=== PATIENT | female | born 1970 | race Caucasian/White ===

== ENCOUNTER → 2017-05-09 10:29 | Outpatient (CLI) | payer BC, SELFPAY ==
[2017-05-09 11:48] LABS: Albumin, Serum 3.7 g/dL (3.2-5.0); BUN 11 mg/dL (7-18); BUN/Creat Ratio 14.4 RATIO (10-20); Calcium,Total 8.6 mg/dL (8.5-10.1); Chloride 106 mmol/L (98-107); Creatinine, Serum 0.76 mg/dL (0.55-1.02); EST Glomerular Filtration Rate 87 mL/min (>60); Est Glom Filt Rate - Afr Amer 105 mL/min (>60); Glucose 93 mg/dL (74-106); Magnesium 2.3 mg/dL (1.6-2.6); Phosphorus 2.9 mg/dL (2.5-4.9); Potassium 4.3 mmol/L (3.5-5.1); Sodium Level 138 mmol/L (136-145)
[2017-05-09 11:57] LABS: PTHIN 78.5 pg/mL (18.4-80.1); Vitamin D,25 Hydroxy 19.4 ng/mL (29.95-100.01)
[2017-05-09 12:09] LABS: Protein, Urine (Random) 18.7 mg/dL (<11.9); Protein:Creat Ratio 110 mg/g CRE (0-200)
== END ==
PROVIDERS: Family Provider Internal Medicine; PCP Internal Medicine; Visit Provider Internal Medicine Nephrology
DX: N18.1 Chronic kidney disease, stage 1 (principal); E55.9 Vitamin D deficiency, unspecified; Z13.0 Encounter for screening for diseases of the blood and blood-forming organs and certain disorders involving the immune mechanism
CPT/HCPCS: 36415; 80069; 82306; 82570; 83735; 83970; 84156

== ENCOUNTER → 2017-10-07 08:46 | Outpatient (CLI) | payer BC, SELFPAY ==
[2017-10-07 10:55] LABS: Erythrocyte Sedimentation Rate 17 mm/hr (0-20)
[2017-10-07 10:58] LABS: Absolute Neutrophil Count 2.9 X10^3/uL (2.0-7.7); Basophil# 0.04 X10^3/uL; Basophil% 0.7 % (0-1); Eosinophil# 0.21 X10^3/uL; Eosinophils% 3.8 % (0-5); Hematocrit 41.8 % (37-47); Hemoglobin 13.9 g/dl (12.0-15.0); Mean Corp Hgb Conc 33.3 g/gl (32-36); Mean Corpuscular Volume 90.1 fL (81-99); Mean Platelet Vol. 9.5 fl (6.2-12.0); Monocyte# 0.49 X10^3/uL; Neutrophil # 2.91 X10^3/uL (2.7-7.7); Neutrophil % 53.3 % (47-70); POSITIVE COUNT NO; POSITIVE DIFFERENTIAL NO; POSITIVE MORPHOLOGY NO; Platelet Count 324 K/mm3 (150-450); RBC Distribution Width CV 13.2 % (11.6-14.6); Red Blood Count 4.64 M/mm3 (4.2-5.4); White Blood Count 5.5 K/mm3 (4.4-11.0)
[2017-10-07 11:19] LABS: ALB/GLOB Ratio 0.8 RATIO (0.9-2.4); AST(SGOT) 27 U/L (15-37); Alanine Aminotransfer ALT/SGPT 35 U/L (13-56); Albumin, Serum 3.6 g/dL (3.2-5.0); Alkaline Phosphatase 79 U/L (45-117); Anion Gap 8 (5-15); BUN 9 mg/dL (7-18); BUN/Creat Ratio 9.9 RATIO (10-20); Chloride 106 mmol/L (98-107); Creatinine, Serum 0.91 mg/dL (0.55-1.02); EST Glomerular Filtration Rate 71 mL/min (>60); Est Glom Filt Rate - Afr Amer 86 mL/min (>60); Globulin 4.3 g/dL (2.2-4.2); Glucose 100 mg/dL (74-106); Protein, Total 7.9 g/dL (6.4-8.2); Sodium Level 141 mmol/L (136-145)
[2017-10-08 15:48] LABS: ANTINUCLEAR ANTIBODIES DIRECT Negative (Negative); Anti-dsDNA Ab 1 IU/mL (0-9)
== END ==
PROVIDERS: Family Provider Internal Medicine; PCP Internal Medicine; Visit Provider Physician Assistant
DX: L30.9 Dermatitis, unspecified (principal); Z85.820 Personal history of malignant melanoma of skin
CPT/HCPCS: 36415; 80053; 85025; 85652; 86038; 86225

== ENCOUNTER 2017-11-18 12:11 | Emergency (ER) | payer BC, SELFPAY ==
[2017-11-18 12:12] VITALS: BP 160/95; PULSE 94; RESP 16; TEMP 36.8; O2SAT 99; BMI 31.4
--- NOTE | 2017-11-18 12:37 | CT_ITS ---
STUDY: CT BRAIN WITHOUT CONTRAST REASON FOR EXAM: Female, 47 years old. Sudden onset of vertigo. Hypertension. RADIATION DOSAGE (If Supplied By Facility): CTDIvol = ( 44.99 ) mGy, DLP = ( 812.98 ) mGycm TECHNIQUE: Transaxial CT imaging of the brain was performed without administration of intravenous contrast material. Individualized dose optimization techniques were used for this CT. COMPARISON: None. FINDINGS: There is a 1.1 cm x 0.5 cm soft tissue and nodule in the scalp overlying the posterior left parietal bone. Normal calvarium. Normal size ventricles and extra-axial spaces for the patient's age. Normal white matter tracts of the cerebral hemispheres. Normal basal ganglia and thalami. Normal brainstem. Normal cerebellum. There is no intracranial hemorrhage. There are no findings of an acute ischemic infarction. Normal visualized paranasal sinuses. CT/Brain/Head without Contrast IMPRESSION: Normal unenhanced CT scan of the brain. 1.1 cm x 0.5 cm soft tissue nodule in the scalp overlying the posterior aspect of the left parietal bone. Electronically Signed: Shadi Ro MD at 13:25 EDT Tel [phone], Service support ,
--- NOTE | 2017-11-18 12:52 | EKG12_ITS ---
Test Reason : DIZZINESS Blood Pressure : / mmHG Vent. Rate : 088 BPM Atrial Rate : 088 BPM P-R Int : 140 ms QRS Dur : 102 ms QT Int : 394 ms P-R-T Axes : 054 000 028 degrees QTc Int : 476 ms Normal sinus rhythm with sinus arrhythmia Normal ECG Confirmed by EMELY CARTWRIGHT, DAXA ([id number]), magazine editor MARK MO ([id number]) on 11/19/2017 2:08:10 PM Referred By: LYNN Confirmed By:DAXA HAN MD
--- NOTE | 2017-11-18 12:57 | PCA ---
NO OLD EKG IN MUSE
[2017-11-18 13:06] LABS: Absolute Lymphocyte Count 2.63 X10^3/ul (0.83-4.51); Absolute Neutrophil Count 5.4 X10^3/uL (2.0-7.7); Basophil# 0.03 X10^3/uL; Basophil% 0.3 % (0-1); Eosinophils% 1.1 % (0-5); Hematocrit 41.8 % (37-47); Hemoglobin 13.5 g/dl (12.0-15.0); Lymphocyte # 2.63 X10^3/ul (4.0); Lymphocyte % 30.2 % (19-41); Mean Corp Hgb Conc 32.3 g/gl (32-36); Mean Corpuscular Hgb 28.8 pg (27.0-32.0); Mean Corpuscular Volume 89.3 fL (81-99); Mean Platelet Vol. 9.1 fl (6.2-12.0); Monocyte# 0.58 X10^3/uL; Monocyte% 6.7 % (0-10); Neutrophil # 5.36 X10^3/uL (2.7-7.7); Neutrophil % 61.6 % (47-70); Platelet Count 341 K/mm3 (150-450); RBC Distribution Width CV 13.1 % (11.6-14.6); RBC Distribution Width SD 42.2 fl (35.1-43.9); Red Blood Count 4.68 M/mm3 (4.2-5.4); White Blood Count 8.7 K/mm3 (4.4-11.0)
[2017-11-18 13:07] LABS: POSITIVE COUNT NO; POSITIVE DIFFERENTIAL NO; POSITIVE MORPHOLOGY NO
[2017-11-18 13:15] LABS: Anion Gap 10 (5-15); BUN 8 mg/dL (7-18); BUN/Creat Ratio 9.9 RATIO (10-20); Chloride 103 mmol/L (98-107); Creatinine, Serum 0.81 mg/dL (0.55-1.02); EST Glomerular Filtration Rate 81 mL/min (>60); Est Glom Filt Rate - Afr Amer 98 mL/min (>60); Glucose 93 mg/dL (74-106); Potassium 3.8 mmol/L (3.5-5.1); Sodium Level 137 mmol/L (136-145)
[2017-11-18 13:38] VITALS: BP 138/87; PULSE 73; RESP 14; O2SAT 96
[2017-11-18 14:02] VITALS: BP 129/81; PULSE 74; RESP 16; O2SAT 99
--- NOTE | 2017-11-18 14:21 | ED.VISSUMM ---
- ER Visit Summary Date of Service: 11/18/17 Chief Complaint: Vertigo on and today with associated elevated blood pressure History of Present Illness: The patient is a 47 F who presents with acute vertigo that occurred . She was charting. She may have looked down. She states things were spinning. Duration approximately 30 minutes. She denied double vision. She denied nausea or vomiting. She denied diaphoresis. She was able to walk a straight line. She states her blood pressure at that time was elevated 195/107. She had an episode today when she was leaning over with vertigo and blood pressure was elevated at 160/95. She denied any change in vision or double vision. She had no other associated symptoms. There is a history of IgA nephropathy. She does not have history of hypertension. She is presently on diltiazem. She presently is not experiencing any vertigo. She denies headache. She denies trouble with speech or swallowing. She denies paresthesia, anesthesia motors. She denies problems with balance. Please read written note for complete detail Physical Examination: Vital signs are remarkable and elevated blood pressure 160/95. Head is atraumatic normocephalic. Pupils are equal round reactive. Extraocular muscles are intact. TMs are pearly white with landmarks noted. Nares patent with no drainage. Posterior pharynx without erythema or exudate. Uvula is midline. There is no dysphonia or dysphasia. Trachea is midline. There is no stridor with auscultation of the neck. Funduscopic exam is normal with no evidence of papilledema. Heart is regular without murmur, gallop or rub. S1 and S2 are normal. Lungs are clear to auscultation with good movement of air bilaterally. Abdomen is soft nontender. Patient is alert and oriented ?3. Motor is 5 over 5. Sensory is intact. DTRs are symmetric with no clonus or Babinski sign. Cranial 2 through 12 are intact. Cerebellar testing is normal. Luis Alfredo-Hallpike maneuver test was done and negative. Eye askew test was performed and is negative. HINT test is negative Test Results: Normal unenhanced CT scan of the brain. 1.1 cm x 0.5 cm soft tissue nodule in the scalp overlying the posterior aspect of the left parietal bone. CBC and basic metabolic panel are normal. Emergency Department Course and Treatment: To evaluate patient's vertigo since this has been associate with elevated blood pressure a CT of the head was obtained. This was obtained to determine if there was any evidence of infarction she had an episode last week and to evaluate for any other intracranial pathology. BMP was obtained to evaluate for endorgan injury. Treatment Plan: Blood pressure at 1420 is 138/89. Disposition: Discharged to home to follow-up with PCP in 1 week for blood pressure check. Since she is asymptomatic with no evidence of endorgan injury and no history of hypertension treatment was not initiated. Impression: 1. Paroxysmal vertigo 2. Hypertension new onset 3. History of IgA nephropathy This note was generated with [employer] dictation software. It may contain incorrect words, spelling, and punctuation that were not noted in review of the chart prior to signing ED Disposition - Plan for ED Patient: Disposition: Home or Assisted Living Chief Complaint: Dizziness Instructions: ED Vertigo Unspecified, ED Hypertension Poss Referrals: Melina Lopes MD [Primary Care Provider] - 1 Week
--- NOTE | 2017-11-18 14:26 | ED.DCSUM_ITS ---
- ER Visit Summary Date of Service: 11/18/17 Chief Complaint: Vertigo on and today with associated elevated blood pressure History of Present Illness: The patient is a 47 F who presents with acute vertigo that occurred . She was charting. She may have looked down. She states things were spinning. Duration approximately 30 minutes. She denied double vision. She denied nausea or vomiting. She denied diaphoresis. She was able to walk a straight line. She states her blood pressure at that time was elevated 195/107. She had an episode today when she was leaning over with vertigo and blood pressure was elevated at 160/95. She denied any change in vision or double vision. She had no other associated symptoms. There is a history of IgA nephropathy. She does not have history of hypertension. She is presently on diltiazem. She presently is not experiencing any vertigo. She denies headache. She denies trouble with speech or swallowing. She denies paresthesia, anesthesia motors. She denies problems with balance. Please read written note for complete detail Physical Examination: Vital signs are remarkable and elevated blood pressure 160 /95. Head is atraumatic normocephalic. Pupils are equal round reactive. Extraocular muscles are intact. TMs are pearly white with landmarks noted. Nares patent with no drainage. Posterior pharynx without erythema or exudate. Uvula is midline. There is no dysphonia or dysphasia. Trachea is midline. There is no stridor with auscultation of the neck. Funduscopic exam is normal with no evidence of papilledema. Heart is regular without murmur, gallop or rub. S1 and S2 are normal. Lungs are clear to auscultation with good movement of air bilaterally. Abdomen is soft nontender. Patient is alert and oriented ? 3. Motor is 5 over 5. Sensory is intact. DTRs are symmetric with no clonus or Babinski sign. Cranial 2 through 12 are intact. Cerebellar testing is normal. Luis Alfredo-Hallpike maneuver test was done and negative. Eye askew test was performed and is negative. HINT test is negative Test Results: Normal unenhanced CT scan of the brain. 1.1 cm x 0.5 cm soft tissue nodule in the scalp overlying the posterior aspect of the left parietal bone. CBC and basic metabolic panel are normal. Emergency Department Course and Treatment: To evaluate patient's vertigo since this has been associate with elevated blood pressure a CT of the head was obtained. This was obtained to determine if there was any evidence of infarction she had an episode last week and to evaluate for any other intracranial pathology. BMP was obtained to evaluate for endorgan injury. Treatment Plan: Blood pressure at 1420 is 138/89. Disposition: Discharged to home to follow-up with PCP in 1 week for blood pressure check. Since she is asymptomatic with no evidence of endorgan injury and no history of hypertension treatment was not initiated. Impression: 1. Paroxysmal vertigo 2. Hypertension new onset 3. History of IgA nephropathy This note was generated with [employer] dictation software. It may contain incorrect words, spelling, and punctuation that were not noted in review of the chart prior to signing ED Disposition - Plan for ED Patient: Disposition: Home or Assisted Living Chief Complaint: Dizziness Instructions: ED Vertigo Unspecified, ED Hypertension Poss Referrals: Melina Lopes MD [Primary Care Provider] - 1 Week
[2017-11-18 14:35] VITALS: BP 130/85; PULSE 75; RESP 17; O2SAT 95
== END 2017-11-18 14:36 | disposition home or self-care (01) ==
PROVIDERS: Emergency Provider Emergency Medicine; Family Provider Internal Medicine; PCP Internal Medicine
DX: H81.10 Benign paroxysmal vertigo, unspecified ear (principal); I10 Essential (primary) hypertension; N02.8 Recurrent and persistent hematuria with other morphologic changes; Z79.899 Other long term (current) drug therapy
CPT/HCPCS: 70450; 80048; 85025; 93005; 99284

== ENCOUNTER → 2022-01-02 | Outpatient (CLI) | payer BC, SELFPAY | END | disposition home or self-care (01) | LOC: LABSPEC 15:18 | PROVIDERS: PCP Internal Medicine; Visit Provider Otolaryngology | DX: J02.9 Acute pharyngitis, unspecified (principal) | CPT/HCPCS: 87070 ==